=== PATIENT | male | born 1990 | race Hispanic/Latino ===

== ENCOUNTER 2020-08-10 12:39 | Outpatient (CLI) | payer OTHER ==
--- NOTE | 2020-08-10 13:29 | CT ---
EXAM: CT left knee PROVIDED CLINICAL HISTORY: Pain COMPARISON: None FINDINGS: There is no evidence for fracture or other acute osseous abnormality. Antegrade intramedullary tibial nail with associated interlocking screw partially visualized, without evidence for hardware loosening or migration. There are multiple small lucencies present within the distal femur and proxim al tibia, typical for disuse osteopenia. The amount of fluid within the knee joint appears physiologic. The menisci, cruciate ligaments and collateral ligaments are insufficiently visualized b y CT for comment. Alignment appears anatomic. Joint spaces appear preserved. IMPRESSION: No evidence for an acute osseous abnormality or significant arthropathy.
== END 2020-08-10 12:40 | disposition home or self-care (01) ==
LOC: BICCT 12:39
PROVIDERS: ATTEND Family Medicine
DX: S89.92XD Unspecified injury of left lower leg, subsequent encounter (principal)